=== PATIENT | female | born 1975 | race Caucasian/White ===

== ENCOUNTER 2017-02-27 14:24 | Inpatient (IN) | payer BC, MEDICAID ==
[2017-02-27] MEDS ORDERED: ceFOXitin 2 GM IVPREMIX* 2 GM/50 ML BAG IVPB ONE (15:05)
[2017-02-27 15:46] LABS: ABS Basophils 0.1 10^3/ul (0-0.2); ABS Eosinophils 0.1 10^3/ul (0-0.6); ABS Lymphocytes 1.6 10^3/ul (1.0-4.8); ABS Monocytes 0.7 10^3/ul (0-0.8); ABS Neutrophils 6.7 10^3/ul (1.5-7.7); ABS Nucleated RBC 0 10^3/ul; Eosinophil % 0.8 % (0-6); Hematocrit 35 % (35-47); Hemoglobin 11.7 g/dl (12.0-16.0); Mean Corpuscular HGB Conc 34 g/dl (31-36); Mean Corpuscular Hemoglobin 29 pg (27-31); Mean Corpuscular Volume 86 fL (80-97); Mean Platelet Volume 9 um3 (7.4-10.4); Nucleated Red Blood Cells % 0; Platelet Count 291 10^3/ul (150-450); Red Blood Count 4.06 10^6/ul (4.0-5.4); Red Cell Distribution Width 14 % (10.5-15); White Blood Count 9.2 10^3/ul (3.5-10.8)
[2017-02-27 16:39] LABS: INR 0.96 (0.77-1.02)
[2017-02-27] MEDS ORDERED: Morphine PF AMP (0.5MG/ML)* 5 MG/10 ML AMP ONE (18:06)
[2017-02-27] MEDS ORDERED: KETAMINE HCL* 50 MG/ML 10 ML VIAL ONE (18:06)
[2017-02-27] MEDS ORDERED: fentaNYL* 50 MCG/ML 2 ML VIAL (100 MCG VIAL) ONE (18:06)
[2017-02-27] MEDS ORDERED: Midazolam* 1 MG/ML 5 ML VIAL (5 MG) ONE (18:06)
[2017-02-27] MEDS ORDERED: Diltiazem IV* 5 MG/ML 5 ML VIAL (for loading dose/IV Push) (25 MG) ONE (18:56)
[2017-02-27] MEDS ORDERED: Ondansetron INJ* 2 MG/ML VIAL ONE (18:56)
[2017-02-27] MEDS ORDERED: Scopolamine 1.5 mg* PATCH ONE (18:56)
[2017-02-27] MEDS ORDERED: Dexamethasone IV* 4 MG/ML 1 ML (4 MG) ONE (18:56)
[2017-02-27] MEDS ORDERED: Ketorolac INJ* 30 MG/ML 1 ML VIAL ONE (18:56)
[2017-02-27] MEDS ORDERED: Phenylephrine INJ* 10 MG/ML 1 ML VIAL (10 MG) ONE (18:57)
[2017-02-27] MEDS ORDERED: DiMENhydriNATE IV* 50 MG/ML VIAL IV PUSH PRN (19:04)
[2017-02-27] MEDS ORDERED: PROCHLORPERAZINE INJ 5 MG/ML 2 ML VIAL IV PRN (19:04)
[2017-02-27] MEDS ORDERED: Scopolamine PATCH Remove* 1 NOTE MISC PATCH OFF PRN (19:04)
[2017-02-27] MEDS ORDERED: Naloxone* 0.4 MG/ML 1 ML VIAL IV PRN ×2 (19:04→19:10)
[2017-02-27] MEDS ORDERED: Naloxone* 2 MG in NS 0.9% 250 ML* 250 ML IV PRN (19:04)
[2017-02-27] MEDS ORDERED: Nalbuphine* 20 MG/ML 1 ML VIAL IV PRN (19:04)
[2017-02-27] MEDS ORDERED: Ondansetron INJ* 2 MG/ML VIAL IV PRN (19:04)
[2017-02-27] MEDS ORDERED: oxyCODONE/Acetamin 5/325 MG* TAB PO PRN (19:04)
[2017-02-27] MEDS ORDERED: diPHENhydraMINE IV* 50 MG/ML 1 ml VIAL (BENADRYL) IV PRN (19:04)
[2017-02-27] MEDS ORDERED: fentaNYL* 50 MCG/ML 2 ML VIAL (100 MCG VIAL) IV PRN (19:10)
[2017-02-27] MEDS ORDERED: EPHEDrine (Pressors)* 50 MG/ML VIAL ONE (19:36)
[2017-02-27] MEDS ORDERED: Acetaminophen TAB* 325 MG PO PRN (19:42)
[2017-02-27] MEDS ORDERED: Glycerin ADULT SUPP PR PRN (19:42)
[2017-02-27] MEDS ORDERED: Dibucaine 1% 28.35 GM TUBE PR PRN (19:42)
[2017-02-27] MEDS ORDERED: Witch Hazel PAD* JAR TOPICAL PRN (19:42)
[2017-02-27] MEDS ORDERED: Oxytocin in LR* 20 UNITS/1,000 ML BAG IVPB SCH (20:00)
[2017-02-27] MEDS ORDERED: Ibuprofen TAB* 600 MG PO SCH (20:00)
[2017-02-28 09:13] LABS: ABS Basophils 0.1 10^3/ul (0-0.2); ABS Eosinophils 0 10^3/ul (0-0.6); ABS Monocytes 1.3 10^3/ul (0-0.8); ABS Neutrophils 11.9 10^3/ul (1.5-7.7); ABS Nucleated RBC 0 10^3/ul; Eosinophil % 0.1 % (0-6); Hematocrit 29 % (35-47); Hemoglobin 9.8 g/dl (12.0-16.0); Mean Corpuscular HGB Conc 33 g/dl (31-36); Mean Corpuscular Hemoglobin 29 pg (27-31); Mean Corpuscular Volume 87 fL (80-97); Mean Platelet Volume 9 um3 (7.4-10.4); Nucleated Red Blood Cells % 0; Platelet Count 213 10^3/ul (150-450); Red Blood Count 3.37 10^6/ul (4.0-5.4); Red Cell Distribution Width 14 % (10.5-15); White Blood Count 15.3 10^3/ul (3.5-10.8)
[2017-02-28] MEDS: Prenatal Vitamin TAB PO SCH (10:13)
[2017-02-28] MEDS: Docusate CAP* 100 MG PO SCH ×3 (10:14→21:54)
[2017-02-28] MEDS: Simethicone TAB* 80 MG TAB.CHEW PO SCH ×4 (10:17→21:54)
[2017-02-28] MEDS: Ferrous Gluconate TAB* 324 MG TAB PO SCH ×2 (10:18→21:53)
[2017-02-28] MEDS ORDERED: oxyCODONE/Acetamin 5/325 MG* TAB PO PRN (10:25)
--- NOTE | 2017-02-28 13:09 | OP ---
DATE OF OPERATION: 02/27/17 - ROOM #[id number]-113 DATE OF : 79 SURGEON: Lana Gaspar MD GUIDE DOG MOBILITY INSTRUCTOR: Elliot Vinson MD ANESTHESIOLOGIST: Erick Ramirez MD ANESTHESIA: Spinal PRE-OP DIAGNOSES: Intrauterine at 36-3/7 weeks, cholestasis of , soco breech left sacrum anterior, A1 diabetes mellitus, and morbid obesity. POST-OP DIAGNOSES: Intrauterine at 36-3/7 weeks, cholestasis of , soco breech left sacrum anterior, A1 diabetes mellitus, and morbid obesity, delivered. OPERATIVE PROCEDURE: Primary low transverse section. ESTIMATED BLOOD LOSS: 600 cc. URINE OUTPUT: 100 cc of concentrated yellow urine. FLUIDS: 3000 cc of crystalloid. FINDINGS: Revealed a left sacrum anterior soco breech female with Apgars 5 at 1 minute and 8 at 5 minutes. Weight was 7 pounds 10 ounces. No meconium. No nuchal cord. Placenta manually extracted, intact 3-vessel cord. Normal uterine cavity without evidence of retained membranes of placental tissue. Normal-appearing ovaries and tubes bilaterally. Normal-appearing uterus. COMPLICATIONS: None apparent. DISPOSITION: Stable to recovery room. DESCRIPTION OF PROCEDURE: The patient was placed in dorsal lithotomy position. Abdomen was prepped and draped in a sterile standard fashion. The patient was identified with universal protocol for correct procedure, position, and patient. Anesthesia was tested to appropriate level. An incision was made two fingerbreadths above the pubic symphysis with a scalpel. This was carried down through the fascia. Fascia was scored in the midline and then extended laterally and superiorly using Lei scissors. The fascia was superiorly and inferiorly with blunt and sharp dissection using Lei scissors and the peritoneum was then entered bluntly. The peritoneal incision was extended bluntly. A bladder blade was inserted. Lower uterine segment was identified, clamped with an Allis, and tented up and incised with scalpel down to membranes. Uterine incision was extended laterally and superiorly using bandage scissors. Clear fluid was noted. The was found to be soco breech and delivered in the soco breech position. Right shoulder and left shoulder delivered. Head delivered spontaneously. Cord was then milked. Infant's cord was clamped and then cut, and infant was handed off to awaiting nuclear pharmacist, Dr. Longo. Appropriate cord blood was obtained. The placenta was then manually extracted and noted to be intact and had 3-vessel cord. Uterus was exteriorized. Cavity was explored, noted to have a normal contour and all placental membranes and tissue were noted to be removed. Uterine incision was then reapproximated using 0 Vicryl, two layers; first layer running locked, second layer running imbricated. Both tubes and ovaries noted to have normal appearance. Uterus was returned intraabdominally. Colic gutters were lavaged. Hemostasis was assured at the hysterotomy site. The peritoneum was then reapproximated using 3-0 Vicryl in a running fashion. Subfascial area was visualized. Hemostasis assured after lavage and the fascia was then reapproximated using 0 Vicryl x2. Copious lavage was performed in the subcutaneous tissue. Bovie was used for hemostasis and a Camper's fascia stitch was placed using 3-0 Vicryl interrupted x5. The skin was then reapproximated using a 4-0 Monocryl in a subcuticular fashion. Mastisol and Steri's were applied. All sponge, needle, instrument, and blade counts were correct throughout the case. The patient tolerated the procedure well and went to recovery room in stable condition. [id number]/[facility] #: [id number] SURJIT
[2017-02-28] MEDS: Ibuprofen TAB* 600 MG PO PRN (18:18)
[2017-03-01] MEDS: Ibuprofen TAB* 600 MG PO PRN ×4 (00:14→17:46)
[2017-03-01] MEDS: oxyCODONE/Acetamin 5/325 MG* TAB PO PRN ×5 (00:14→21:25)
[2017-03-01] MEDS: Ferrous Gluconate TAB* 324 MG TAB PO SCH ×2 (08:51→21:24)
[2017-03-01] MEDS: Simethicone TAB* 80 MG TAB.CHEW PO SCH ×4 (08:51→21:24)
[2017-03-01] MEDS: Prenatal Vitamin TAB PO SCH (08:51)
[2017-03-01] MEDS: Docusate CAP* 100 MG PO SCH ×3 (08:52→21:24)
--- NOTE | 2017-03-01 17:47 | PN ---
Progress Note - Progress Note Date of Service: 03/01/17 Note: Anesthesia. I was asked to see patient re:numb at tailbone. Pt walking, leg strength tests at 5/5 in all areas, DTRs intact, sensation intact to light touch. Further testing of sensation with needle pricks show NO deficit. Pt is urinating and can feel when she needs to urinate. The patient has no abnormal neuro findings, I'd bet her "numbness" is merely from spending a fair amount of time sitting in bed. No further followup needed.
[2017-03-02] MEDS: Ibuprofen TAB* 600 MG PO PRN ×3 (00:22→13:27)
[2017-03-02] MEDS: oxyCODONE/Acetamin 5/325 MG* TAB PO PRN ×2 (01:53→07:38)
[2017-03-02] MEDS: Simethicone TAB* 80 MG TAB.CHEW PO SCH ×3 (07:37→11:53)
[2017-03-02] MEDS: Ferrous Gluconate TAB* 324 MG TAB PO SCH (07:37)
[2017-03-02] MEDS: Docusate CAP* 100 MG PO SCH ×2 (07:37→13:27)
[2017-03-02] MEDS: Prenatal Vitamin TAB PO SCH (07:37)
[2017-03-02 17:49] VITALS: BP 119/62
== END 2017-03-02 17:56 | disposition home or self-care (01) | DRG 540 ==
LOC: MCHOBOUT 14:24 → MCHOB 15:03
PROVIDERS: ADMIT Obstetrics & Gynecology; ATTEND Obstetrics & Gynecology
PROC: 10D00Z1 Extraction of Products of Conception, Low, Open Approach (ICD-10-PCS; principal; 2017-02-27 18:18)
DX: O32.1XX0 Maternal care for breech presentation, not applicable or unspecified (principal); K83.1 Obstruction of bile duct; E66.01 Morbid (severe) obesity due to excess calories; O26.62 Liver and biliary tract disorders in childbirth; O24.429 Gestational diabetes mellitus in childbirth, unspecified control; Z68.41 Body mass index [BMI] 40.0-44.9, adult; O99.214 Obesity complicating childbirth; O99.824 Streptococcus B carrier state complicating childbirth; Z3A.36 36 weeks gestation of pregnancy; Z37.0 Single live birth
CPT/HCPCS: 36415; 80076; 82947; 84443; 85025; 85610; 86850; 86900; 86901; A9270-GY; J0694; J1100; J1885; J2250; J2405; J3010

== ENCOUNTER 2017-04-07 07:57 | Emergency (ER) | payer BC, MEDICAID ==
[2017-04-07 08:46] VITALS: BP 123/73
--- NOTE | 2017-04-07 11:21 | UC ---
Irineo Sun Nikita, scribed for Yanci Vallejo DO on 04/07/17 at 0858 . Eye Complaint HPI - HPI Summary HPI Summary: This patient is a 41 year old F presenting to [facility] with a chief complaint of R eye irritation since 0430 this morning. The CC is described as drainage, pruritic, and feels full. The patient rates the pain 0/10 in severity. Symptoms aggravated by nothing. Symptoms alleviated by cold wash cloth. Patient denies vision changes, foreign body in the eye, fever, chills, nausea, vomiting , CP, SOB, cough, AGARWAL, rash, sore throat, ear ache, and abdominal pain. The patient does not wear contacts or glasses. - History of Current Complaint Chief Complaint: UCEye Stated Complaint: EYE IRRITATION Time Seen by Provider: 04/07/17 08:32 Hx Obtained From: Patient Hx Last Menstrual Period: may 2016 Onset/Duration: Sudden Onset, Still Present Timing: Constant Severity Currently: None Pain Intensity: 0 Pain Scale Used: 0-10 Numeric Aggravating Factor(s): Nothing Alleviating Factor(s): Other - cold wash cloth Associated Signs And Symptoms: Positive: Drainage (Clear) - Patient denies vision changes, foreign body in the eye, fever, chills, nausea, vomiting, CP, SOB, cough, AGARWAL, rash, sore throat, ear ache, and abdominal pain. - Allergies/Home Medications Allergies/Adverse Reactions: Allergies Allergy/AdvReac Type Severity Reaction Status Date / Time No Known Allergies Allergy Verified 04/07/17 08:46 PMH/Surg Hx/FS Hx/Imm Hx Endocrine History: Diabetes - gestational Cardiovascular History: Other Other Cardiovascular History: No CAD, HTN Respiratory History: Other Other Respiratory History: seasonal allergies Cancer History: Other Other Cancer History: Denies hx of CA - Surgical History Surgical History: None - Family History Known Family History: Positive: Hypertension, Other Family History: cystic fibrosis - Social History Alcohol Use: None Substance Use Type: None Smoking Status (MU): Never Smoked Tobacco - Immunization History Most Recent Influenza Vaccination: 11/2016 Most Recent Tetanus Shot: UTD Most Recent Pneumonia Vaccination: never Review of Systems Constitutional: Other - Denies fever, chills, Skin: Other - denies rash Eyes: Drainage - in the R eye, Other - pruritic in the R eye; denies vision changes or foreign body in the eye; the patient does not wear contacts or glasses ENT: Other - denies sore throat, ear ache Respiratory: Other - denies SOB and cough Cardiovascular: Other - denies CP Gastrointestinal: Other - denies nausea, vomiting, abdominal pain Neurological: Other - denies AGARWAL All Other Systems Reviewed And Are Negative: Yes Physical Exam Triage Information Reviewed: Yes Appearance: Well-Appearing, No Pain Distress, Well-Nourished Vital Signs: Initial Vital Signs Temp 99.1 F 04/07/17 08:41 Pulse 83 04/07/17 08:41 Resp 20 04/07/17 08:41 BP 123/73 04/07/17 08:41 Pulse Ox 99 04/07/17 08:41 Vital Signs Reviewed: Yes Eyes: Positive: Discharge - clear, Other: - Redness in conjunctiva ENT: Positive: Pharynx normal. Negative: Muffled voice, Hoarse voice Neck exam: Normal Neck: Positive: Supple Respiratory: Positive: Lungs clear, Normal breath sounds, No respiratory distress, No accessory muscle use Cardiovascular: Positive: RRR, No Murmur Musculoskeletal Exam: Normal Neurological: Positive: Alert, Muscle Tone Normal Psychological Exam: Normal Psychological: Positive: Age Appropriate Behavior Skin Exam: Normal, Other - Warm, dry, normal color Eye Complaint Course/Dx - Course Course Of Treatment: Patient will be discharged with prescription for cortisporin and follow up from PCP. The patient is agreeable with this plan. Medications reviewed. Allergies reviewed. - Differential Dx/Diagnosis Differential Diagnosis/HQI/PQRI: Conjunctivitis Provider Diagnoses: conjunctivitis Discharge - Discharge Plan Condition: Stable Disposition: HOME Prescriptions: Neomycin/Polym/HC OPTH.SUSP* [Cortisporin OPHTH.SUSP*] 1 drop RIGHT EYE Q4H #1 btl Patient Education Materials: How to Use Eye Drops (ED), Conjunctivitis (ED) Referrals: Courtney Galvan MD [Primary Care Provider] - If Needed (Fllow up if new symptoms develop or current symptoms worsen or persist for more than 4 days.) The documentation as recorded by the Irineo bustillo Nikita accurately reflects the service I personally performed and the decisions made by , Yanci Vallejo DO.
== END 2017-04-07 10:06 | disposition home or self-care (01) ==
LOC: UCEAST 07:57
DX: H10.9 Unspecified conjunctivitis (principal)
CPT/HCPCS: 99212; G0463

== ENCOUNTER 2017-05-17 15:18 | Emergency (ER) | payer BC, MEDICAID ==
--- NOTE | 2017-05-17 15:27 | UC ---
Lower Extremity/Ankle HPI - HPI Summary HPI Summary: Pt presents with right groin pain that started about 2 weeks ago. It seems to be improving slowly, but she is very worried that she has blood clot. She tells me that the pain started in her right groin after getting in and out of her truck about 2 weeks ago, but around that time she also started a new OBC "minipill". She also says that for the last 2 days she has had right leg general "achy-ness" and thinks she has some decreased sensations in her right toes. This also makes her anxious because she had a with spinal epidural 3 months ago...since that time has had areas of numbness in her mid/ low back. She was told that this was normal after an epidural and would eventually improve. Has been taking ibuprofen with mild relief. Denies recent travel or prolonged sedation, fever, chills, SOB, chest pain, abdominal pain, n/ v/d/c, dysuria, loss of bowel/bladder function, headache, or dizziness. - History of Current Complaint Stated Complaint: LEG PAIN Time Seen by Provider: 05/17/17 15:27 Hx Obtained From: Patient Hx Last Menstrual Period: may 2016 Onset/Duration: Gradual Onset Severity Initially: Mild Severity Currently: Moderate Pain Intensity: 7 Pain Scale Used: 0-10 Numeric Aggravating Factor(s): Other - Adduction right leg Alleviating Factor(s): Rest Able to Bear Weight: Yes - Allergies/Home Medications Allergies/Adverse Reactions: Allergies Allergy/AdvReac Type Severity Reaction Status Date / Time No Known Allergies Allergy Verified 05/17/17 15:28 PMH/Surg Hx/FS Hx/Imm Hx Previously Healthy: Yes - Surgical History Surgical History: None - Family History Known Family History: Positive: Hypertension, Other Family History: cystic fibrosis - Social History Occupation: Employed Full-time Lives: With Family Alcohol Use: None Substance Use Type: None Smoking Status (MU): Never Smoked Tobacco - Immunization History Most Recent Influenza Vaccination: 11/2016 Most Recent Tetanus Shot: UTD Most Recent Pneumonia Vaccination: never Review of Systems Constitutional: Negative Skin: Negative Respiratory: Negative Cardiovascular: Negative Gastrointestinal: Negative Genitourinary: Negative Neurovascular: Negative Musculoskeletal: Decreased ROM - Right hip, Other: - Right groin pain Neurological: Negative Psychological: Negative All Other Systems Reviewed And Are Negative: Yes Physical Exam - Summary Physical Exam Summary: GENERAL: NAD. WDWN. No pain distress. SKIN: No rashes, sores, ulcers, masses, lesions. Numerous varicose veins on b/l LEs. NECK: Supple. FROM. Nontender. No lymphadenopathy. CHEST: CTAB. No r/r/w. No accessory muscle use. Breathing comfortably and in no distress. CV: RRR. Without m/r/g. Pulses intact. Brisk cap refill. MSK: TTP right groin. Pain with active adduction of the right hip. No pain with passive adduction of right hip. Negative SLR b/l. Positive TEDDY for right groin pain. Strength 5/5 B/L LEs including dorsiflexion and plantar flexion. No edema. Negative harshil's sign. No femoral hernia appreciated. NEURO: Alert. CN II-XII grossly intact. Sensations intact B/L LEs L3-S1. PSYCH: Age appropriate behavior. Triage Information Reviewed: Yes Lower Extremity Course/Dx - Course Course Of Treatment: I had a long discussion with the patient that I suspect her pain is due to a groin muscle strain and that I have a low suspicion for a DVT. If, however, she was worried about a DVT - she should go to the ED as US is not available this evening in . She said that she would go to the ED for "peace of mind". - Differential Dx/Diagnosis Provider Diagnoses: Right groin strain Discharge - Sign-Out/Discharge Documenting (check all that apply): Discharge - Discharge Plan Condition: Stable Disposition: HOME Patient Education Materials: Groin Strain (ED), Hip Pain (ED) Referrals: Courtney Galvan MD [Primary Care Provider] - Additional Instructions: If you develop a fever, shortness of breath, chest pain, new or worsening symptoms - please call your PCP or go to the ED. Your blood pressure was mildly elevated at todays visit. Please see your primary provider within 4 weeks for recheck and re-evaluation. 1) May continue to take ibuprofen as needed for pain - Billing Disposition and Condition Condition: STABLE Disposition: HOME
[2017-05-17 15:38] VITALS: BP 153/76
== END 2017-05-17 16:10 | disposition home or self-care (01) ==
LOC: UCEAST 15:18
DX: S39.011A Strain of muscle, fascia and tendon of abdomen, initial encounter (principal); X50.3XXA Overexertion from repetitive movements, initial encounter; Y93.89 Activity, other specified; Y92.9 Unspecified place or not applicable
CPT/HCPCS: 99211; G0463

== ENCOUNTER 2017-05-17 16:49 | Emergency (ER) | payer BC, MEDICAID ==
--- NOTE | 2017-05-17 19:10 | RAD ---
HISTORY: ] Strain, pain, edema COMPARISONS: None relevant TECHNIQUE: Multiple transverse and longitudinal ultrasound images were obtained of the right lower extremity from the level of the common femoral vein inferiorly through to the infrapopliteal veins using grayscale, color Doppler, and spectral Doppler imaging with and without compression and with augmentation. Comparison images were obtained of the contralateral common femoral vein. FINDINGS: VEINS: The venous system of the right lower extremity is compressible throughout its course, with normal flow on color Doppler imaging and normal response to augmentation on spectral Doppler imaging. SOFT TISSUES: Unremarkable. OTHER FINDINGS: None. IMPRESSION: NO RIGHT LOWER EXTREMITY DEEP VEIN THROMBOSIS
[2017-05-17 19:35] VITALS: BP 131/83
--- NOTE | 2017-05-17 20:09 | ED ---
Lower Extremity - HPI Summary HPI Summary: 41F presents with right leg pain for the past couple days. She states this feels like an ache in her entire leg. She states she has been having intermittent calf pain. She states she is concerned about a blood clot. States she recently started a new control. She gave 3 months ago. She states she has had numbness in her back since epidural. She was told that was normal. She denies any back pain. She denies any loss of bowel or bladder. She denies any saddle anasethesia. She also complains of right groin pain that was told was a sprain. She denies any bowel pain. She denies any pain. She has been taking ibuprofen without relief. She denies any chest pain or shortness breath. She is nonsmoker. She denies any recent travel. She states she may have a family history of blood clots. She states pain is minimial when wakes up in ground but gets worst throughout the day. - History of Current Complaint Chief Complaint: EDExtremityLower Stated Complaint: RT LEG PAIN Time Seen by Provider: 05/17/17 19:58 Hx Last Menstrual Period: may 2016 Pain Intensity: 4 - Allergies/Home Medications Allergies/Adverse Reactions: Allergies Allergy/AdvReac Type Severity Reaction Status Date / Time No Known Allergies Allergy Verified 05/17/17 15:28 PMH/Surg Hx/FS Hx/Imm Hx Endocrine/Hematology History: Denies: Hx Anticoagulant Therapy Respiratory History: Reports: Hx Asthma - Surgical History Surgery Procedure, Year, and Place: c section 2018 Infectious Disease History: No Infectious Disease History: Denies: Traveled Outside the [place] in Last 30 Days - Family History Known Family History: Positive: Hypertension, Other Family History: cystic fibrosis - Social History Alcohol Use: None Substance Use Type: Reports: None Smoking Status (MU): Never Smoked Tobacco Review of Systems Negative: Fever Negative: Chest Pain Negative: Shortness Of Breath Positive: Myalgia - groin and right leg pain All Other Systems Reviewed And Are Negative: Yes Physical Exam Triage Information Reviewed: Yes Vital Signs On Initial Exam: Initial Vitals Temp Pulse Resp BP Pulse Ox 98.3 F 78 16 121/80 97 05/17/17 16:57 05/17/17 16:57 05/17/17 16:57 05/17/17 16:57 03/23/18 16:57 Vital Signs Reviewed: Yes Appearance: Positive: Well-Appearing Skin: Positive: Warm, Dry Head/Face: Positive: Normal Head/Face Inspection Eyes: Positive: Normal, Conjunctiva Clear Respiratory/Lung Sounds: Positive: Clear to Auscultation, Breath Sounds Present Cardiovascular: Positive: Normal, RRR Abdomen Description: Positive: Nontender, Soft, Other: - no hernia felt Bowel Sounds: Positive: Present Musculoskeletal: Positive: Strength/ROM Intact - right leg, Other - nontender right leg, groin pain with ROM of leg, good pulses, sensation grossly intact, nontender back. Negative: Luis Sign Right Neurological: Positive: Normal Psychiatric: Positive: Normal Diagnostics - Vital Signs Vital Signs Temp Pulse Resp BP Pulse Ox 05/17/17 19:34 98.3 F 76 19 131/83 100 05/17/17 16:57 98.3 F 78 16 121/80 97 - Laboratory Lab Statement: Any lab studies that have been ordered have been reviewed, and results considered in the medical decision making process. - Ultrasound No standard instances Ultrasound Interpretation: No Acute Changes Ultrasound Interpretation Completed By: Radiologist Lower Extremity Course/Dx - Course Course Of Treatment: 41F presents with right leg pain for the past couple days. She states this feels like an ache in her entire leg. She states she has been having intermittent calf pain. She states she is concerned about a blood clot. States she recently started a new control. She gave 3 months ago. She states she has had numbness in her back since epidural. She was told that was normal. She denies any back pain. She denies any loss of bowel or bladder. She denies any saddle anasethesia. She also complains of right groin pain that was told was a sprain. She denies any bowel pain. She has been taking ibuprofen with some relief. She denies any chest pain or shortness breath. She is nonsmoker. She denies any recent travel. She states she may have a family history of blood clots. She states pain is minimal when wakes up but gets worst throughout the day. On exam neurovascularly intact. Tenderness to right groin. No hernia felt. Full range of motion of leg. Nontender back. Ultrasound normal. Probably sprain of the groin. Will have follow-up with primary for continued care. Patient understands the plan. - Diagnoses Differential Diagnosis/HQI/PQRI: Positive: DVT, Sprain, Strain Provider Diagnoses: Right leg pain Discharge - Sign-Out/Discharge Documenting (check all that apply): Discharge - Discharge Plan Condition: Good Disposition: HOME Patient Education Materials: Leg Sprain (ED) Referrals: Courtney Galvan MD [Primary Care Provider] - Additional Instructions: Take Tylenol or ibuprofen every 6 hours as needed for pain Apply ice, rest, elevate Follow up with primary care physician within 5 days Return to ED if develop any new or worsening symptoms - Billing Disposition and Condition Condition: GOOD Disposition: HOME
== END 2017-05-17 20:30 | disposition home or self-care (01) ==
LOC: ED 16:49
DX: M79.604 Pain in right leg (principal)
CPT/HCPCS: 99282

== ENCOUNTER 2019-01-30 13:29 | Emergency (ER) | payer BC, MEDICAID ==
--- NOTE | 2019-01-30 17:32 | ED ---
Lower Extremity - HPI Summary HPI Summary: History 43-year-old female reports emergency department today complaining of right hip pain 2 years. She reports emergency department today because she says her pain has been worse the last few days. She does not recall any provoking event which caused this acuity. She reports her pain as a 8 out of 10 throbbing pain in her right groin which is made worse with ambulation and nothing makes it better, including ibuprofen. She reports she was left from intermittent numbness and tingling in the right leg. She denies inability to ambulate. She states her pain radiates to her right knee. She denies alcohol use, recreational drug use, smoking. She denies fever, chest pain, abdominal pain, pending urination, rash, difficulty with bowel movements or urination, back pain. - History of Current Complaint Chief Complaint: EDExtremityLower Stated Complaint: RIGHT LEG PAIN PER PT Time Seen by Provider: 01/30/19 17:32 Hx Obtained From: Patient Hx Last Menstrual Period: may 2016 Onset of Pain: Prior to Arrival Onset/Duration: Weeks Severity Initially: Mild Severity Currently: Moderate Pain Intensity: 6 Pain Scale Used: 0-10 Numeric Timing: Constant Location: Is Discrete @ - R hip Character Of Pain: Sharp, Aching Associated Signs And Symptoms: Negative: Redness, Bruising, Fever, Abdominal Pain Aggravating Factor(s): Standing, Ambulation, Movement, Weight Bearing, Stairs Alleviating Factor(s): Rest Able to Bear Weight: Yes - Allergies/Home Medications Allergies/Adverse Reactions: Allergies Allergy/AdvReac Type Severity Reaction Status Date / Time No Known Allergies Allergy Verified 05/17/17 15:28 PMH/Surg Hx/FS Hx/Imm Hx Endocrine/Hematology History: Denies: Hx Anticoagulant Therapy Respiratory History: Reports: Hx Asthma - Surgical History Surgery Procedure, Year, and Place: c section 2018 Infectious Disease History: No Infectious Disease History: Denies: Traveled Outside the [place] in Last 30 Days - Family History Known Family History: Positive: Hypertension, Other Family History: cystic fibrosis - Social History Alcohol Use: None Substance Use Type: Reports: None Smoking Status (MU): Never Smoked Tobacco Review of Systems Constitutional: Negative Eyes: Negative ENT: Negative Cardiovascular: Negative Respiratory: Negative Gastrointestinal: Negative Genitourinary: Negative Positive: Arthralgia Skin: Negative Neurological: Negative Psychological: Normal All Other Systems Reviewed And Are Negative: Yes Physical Exam - Summary Physical Exam Summary: Inspection of the hips reveals no ecchymosis or edema. Patient has full range of motion at the knees and hips bilaterally with decreased ability for internal rotation with the right hip. Patient is able to really well with a mildly antalgic gait to the right hip. Dorsalis pedis pulses 2+ bilaterally. Sensation is intact throughout the lower extremity. Reflexes are 2+ and strength is 5/5 large knees bilaterally. Triage Information Reviewed: Yes Vital Signs On Initial Exam: Initial Vitals Temp Pulse Resp BP Pulse Ox 97.8 F 90 18 133/76 98 01/30/19 13:41 01/30/19 13:41 01/30/19 13:41 01/30/19 13:41 01/30/19 13:41 Vital Signs Reviewed: Yes Appearance: Positive: Well-Appearing, No Pain Distress, Well-Nourished Skin: Positive: Warm, Skin Color Reflects Adequate Perfusion Eyes: Positive: EOMI, JAYLEEN ENT: Positive: Hearing grossly normal Respiratory/Lung Sounds: Positive: Clear to Auscultation, Breath Sounds Present Cardiovascular: Positive: RRR, S1, S2 Abdomen Description: Positive: Nontender, No Organomegaly Bowel Sounds: Positive: Present Musculoskeletal: Positive: Strength/ROM Intact Neurological: Positive: Sensory/Motor Intact, Alert, Oriented to Person Place, Time, CN Intact II-III, Normal Gait, Speech Normal Psychiatric: Positive: Normal AVPU Assessment: Alert Procedures - Sedation Patient Received Moderate/Deep Sedation with Procedure: No Diagnostics - Vital Signs Vital Signs Temp Pulse Resp BP Pulse Ox 01/30/19 13:41 97.8 F 90 18 133/76 98 - Laboratory Lab Statement: Any lab studies that have been ordered have been reviewed, and results considered in the medical decision making process. Lower Extremity Course/Dx - Course Course Of Treatment: Patient was evaluated in the emergency department today for right hip pain. Patient's vital signs are stable. X-ray of the right hip revealed osteoarthritis. Patient's history and imaging is consistent with osteoarthritis of right hip has caused her symptoms. She was given tramadol for pain and told to follow-up with her primary care physician for referral to an orthopedic doctor for long-term management of this chronic problem. She agreed to this plan. - Diagnoses Differential Diagnosis/HQI/PQRI: Positive: Arthritis, Contusion, Dislocation, Fracture (Closed), Sprain, Strain Provider Diagnoses: Arthritis of right hip Discharge ED - Sign-Out/Discharge Documenting (check all that apply): Patient Departure - Discharge Plan Condition: Stable Disposition: HOME Patient Education Materials: Osteoarthritis (ED), Hip Pain (ED) Referrals: Courtney Galvan MD [Primary Care Provider] - 3 Days Additional Instructions: You were seen in the emergency department today due to your right hip pain. There appears to be no life-threatening pathology causing your symptoms however , you should be further evaluated by an orthopedic doctor. It is likely the cause of your symptoms is osteoarthritis. Take ibuprofen for pain relief 600 mg every 6 hours as needed for 1 week. Return to activities tolerated. Please return to the emergency department immediately if you develop any new or worsening symptoms. - Billing Disposition and Condition Condition: STABLE Disposition: Home
[2019-01-30 21:20] VITALS: BP 138/78
[2019-01-30] MEDS ORDERED: traMADol TAB* 50 MG PO ONE (21:28)
== END 2019-01-30 21:16 | disposition home or self-care (01) ==
LOC: ED 13:29
DX: M16.11 Unilateral primary osteoarthritis, right hip (principal); J45.909 Unspecified asthma, uncomplicated
CPT/HCPCS: 36415; 84702; 99282; A9270-GY